=== PATIENT | male | born 2000 | race Caucasian/White ===

== ENCOUNTER 2025-01-13 17:53 | Emergency (ER) | payer OTHER, SELFPAY ==
[2025-01-13 18:02] VITALS: BP 151/93; BMI 28.9
[2025-01-13 18:06] LABS: Glucose - Point of Care 127 mg/dl (70-99)
--- NOTE | 2025-01-13 19:26 | ED.CVA ---
History of Present Illness
General
Chief Complaint: CVA/TIA Symptoms
Time Seen by Provider: 01/13/25 19:11
Onset of Stroke Symptoms
Onset of symptoms known: Yes
Date of onset of symptoms: 01/13/25
History of Present Illness
History of Present Illness:
See MDM
Past History
Past History
ED Past Medical History: Cancer, GERD, Seizures and Other (hyperpituitarism, methamonic acidemia)
ED Past Surgical History: Other (feeding tube, liver transplant 2013)
Social History
Tobacco: Non-smoker
Alcohol: None
Drug: None
Personal: Single
Living: with family
Employment: Other
Family History
Family History: Other (reviewed and noncontributory)
Phy Exam
Physical Exam
Physical Exam:
See MDM
Scores
NIH Stroke Score
Level of Consciousness: 0 - Alert
LOC Questions: 0-Answers both correctly
LOC Commands: 0-Performs both correctly
Best Horizontal Gaze: 0-Normal
Visual Beebe: 0=Normal, no visual loss
Facial Palsy: 0=Normal, symmetrical
Motor - Right Arm: 0=No drift 10 seconds
Motor - Left Arm: 0=No drift 10 seconds
Motor - Right Le-No drift 5 seconds
Motor - Left Le-No drift 5 seconds
Limb Ataxia: 0-Absent
Sensation: 0-Normal
Best Language: 0-No aphasia
Dysarthria: 0-Normal
Extinction and Inattention: 0-No abnormality
Total Score:: 0
Course
Orders/Labs/Results
Orders:
Orders
01/13/25 19:20
CMP [Comprehensive Metabolic Panel] Urgent
Complete Blood Count/With Diff Urgent
Urinalysis Reflex To Culture Urgent
Date Specimen was Collected: 01/13/25
Time Specimen was Collected: 19:19
Urine Microscopic Reflex Cult Urgent
Abnormal Lab Results
01/13/25 01/13/25
18:03 19:20
WBC 4.4 L 10^3/uL
(4.8-10.8)
RBC 4.58 L 10^6/uL
(4.70-6.10)
Hgb 12.9 L g/dL
(13.0-18.0)
Hct 36.4 L %
(39.0-52.0)
MCV 79.5 L fL
(80.0-94.0)
Neutrophils % 39.6 L %
(42.2-75.2)
Monocytes % 12.4 H %
(1.7-9.3)
Sodium 134 L mmol/L
(135-145)
Chloride 95 L mmol/L
(98-107)
BUN 33 H mg/dl
(9-20)
Creatinine 1.4 H mg/dL
(0.7-1.3)
Albumin 5.2 H g/dl
(3.5-5.0)
Ur Occult Blood Reflex 1+ A
(Negative)
Urine RBC 3-6 A /HPF
(0-2)
Urine Bacteria (Reflex) Few A
(Negative)
POC Glucose 127 H mg/dl
(70-99)
01/13/25 19:20
01/13/25 19:20
Vital Signs
Initial and Last Documented VS:
Initial Vital Signs
Temp Pulse Resp BP Pulse Ox
98.1 F 71 18 151/93 100
01/13/25 18:02 01/13/25 18:02 01/13/25 18:02 01/13/25 18:02 01/13/25 18:02
Last Documented Vital Signs
Temp Pulse Resp BP Pulse Ox
98.1 F 79 23 128/90 97
01/13/25 18:02 01/13/25 21:00 01/13/25 21:00 01/13/25 21:00 01/13/25 21:00
MDM/Problems Addressed
Differential Diagnosis Includes:
HPI and MDM Narrative:
24-year-old male presenting with his mother for evaluation of right arm weakness. Patient noted the symptoms around 4:10 PM today. This occurred while he was watching TV. Due to his significant past medical history they had a virtual visit with
their [facility] RN. Based on his symptoms, he was instructed to come to the emergency department.
Patient denies numbness or tingling. Mother is concerned whether this could be related to his prior issues, if this is an electrolyte abnormality or possibly nerve. He did go bowling yesterday and was using his right arm a lot. He then did heavy
lifting today but it is not sure whether or not he uses right arm his left arm. Regardless, mother thinks this could be an overuse issue. On my exam, patient does have proximal weakness to his right arm but the extremity is neurovascularly intact.
Patient can slowly raise his arm. Once he gets into position, there is no drift. Based on this, stroke alert was not called
Regardless, I did discuss with mother about obtaining CT head. She understands my concerns but declines CT head due to the radiation exposure. She understands the possible diagnoses that could be missed
Physical exam
General: Well appearing and non-toxic
HEENT: protecting airway
Neck: appears supple
CV: No evidence of cyanosis. Regular and rhythm
Resp: No accessory muscle use
Abd: Non-distended
Extremities: No deformities. Weakness noted to right shoulder but there is no drift.
Neuro: alert
Psych: Normal affect
Skin: Intact
Problems Addressed including Acute and Chronic Conditions affecting care:
1. Right arm weakness
Acuity: acute
Prognosis: stable
Details: Although the extremity is somewhat weak, there is no drift
Updates
Blood work without clinical significance. Mother now believes that this could be musculoskeletal related. He has been working with physical therapy recently and has been going to the gym doing arm and chest exercises. I did offer admission for
MRI to rule out stroke. However, they feel confident going home and will call the neurologist in the morning
Differential Diagnosis (but not limited to): Stroke, TIA, overuse, electrolyte abnormality
Testing considered: CT head
Drug therapy (if applicable): OTC meds, please see d/c instruction regarding Rx drugs
Amount and/or Complexity of Data Reviewed
Clinical info obtained from: Patient and mother
External data reviewed: N/A
Labs I independently reviewed (but not limited to): Mild hyponatremia. Hematuria but mother states this is chronic
Radiology: N/A
Pulse Ox: not hypoxic
EKG independently reviewed: N/A
Shipwright Helper: N/A
Critical Care: N/A
Risk of Complication:
Social Determinants of health: Good social support
Discussed with other providers: N/A
Escalation of Care includes Admit/Obs: After being observed in the Emergency Department, pt stable for discharge.
Occasional wrong word or 'sound a like' substitutions may have occurred due to the inherent limitations of voice recognition software. Read the chart carefully and recognize, using context, where substitutions have occurred.
*Critical Care Note
Total Time (30-74mins, 75-104mins- exclusive of procedures): Not Applicable
ED Attending Note
-
Portions of this chart may have been created with voice recognition software.� Occasional wrong word or��sound alike� substitutions may have occurred due to the inherent limitations of voice recognition software.
Discharge Plan
Departure
Patient Disposition: Home (Routine Discharge)
Date of Disposition: 01/13/25
Time of Disposition: 21:30
Patient with high blood pressure during this ER visit?: No
Discharge Problem:
Weakness of right arm
Prescriptions:
No Action
coenzyme Q10 [H2Q] 100 MG capsule
400 mg PO BID
levocarnitine (with sugar) [Carnitor] 100 MG/ML solution
3.4 ml feeding tube BID
Calcium Carbonate
1 tab PO TID PRN (Reason: stomach discomfort)
albuterol sulfate 1 PUFF HFA aerosol inhaler
1 puff inhalation PRN PRN (Reason: WHEEZE)
famotidine [Acid Controller] 20 MG tablet
20 mg PO BID
lorazepam 0.5 MG tablet
0.5 mg PO Q8HPRN PRN (Reason: anxiety)
diphenhydramine HCl [Banophen] 25 MG capsule
25 mg PO Q6HPRN PRN (Reason: nausea)
fluticasone propionate 1 SPRAY spray,suspension
1 spray intranasal DAILY PRN (Reason: allergies)
omega-3 acid ethyl esters [Lovaza] 1 GM capsule
2 gm PO BID
diclofenac sodium 100 GRAM/TUBE gel
2 g S QID PRN (Reason: skin)
loratadine 10 MG capsule
10 mg PO DAILY PRN (Reason: allergies)
losartan 50 MG tablet
50 mg PO BID
nystatin 5 ML suspension
1 dose PO PRN PRN (Reason: thrush)
tacrolimus 1 MG capsule
1 mg PO BID
escitalopram oxalate 5 MG tablet
5 mg PO DAILY
cholecalciferol (vitamin D3) 2,000 UNITS tablet
2,000 units PO DAILY
vitamin E (dl, acetate) 400 UNITS capsule
400 units PO DAILY
multivitamin with folic acid [Tab-A-David] 1 TABLET tablet
1 tab PO DAILY
magnesium oxide 400 MG tablet
400 mg PO DAILY
Clobazam
5 mg PO HS
Pedialyte Solution
1 l PO DAILY
albuterol sulfate [ProAir HFA] 90 mcg/actuation HFA aerosol inhaler
1 puff inhalation Q4HPRN PRN (Reason: shortness of breath) Qty: 6.7 0RF
Referrals:
Nabeel Raya MD [Primary Care Provider] -
Activity Restrictions/Additional Instructions:
Please return for any worsening symptoms.
You may return at any time if you have further concerns.
Please follow up with your doctor at the first available appointment, preferably this week.
Please call his neurology team tomorrow.
Thank you for choosing [facility].
Interventions
Interventions:
*Risk Screen - Suicide Last Done: 01/13/25 18:02
*General Assessment Last Done: 01/13/25 18:02
*Neglect/Abuse Screening Last Done: 01/13/25 18:02
ED- Fall Risk Assessment Last Done: 01/13/25 19:30
*ED COVID-19 Vaccine History Last Done: 01/13/25 18:02
ED- Pulmonary Assessment Last Done: 01/13/25 19:30
ED- Neurological Assessment Last Done: 01/13/25 19:30
ED- Cardiac Assessment Last Done: 01/13/25 19:30
Discharge Date and Time
Print Language: BRUNEIAN
[2025-01-13 19:27] LABS: Urine Albumin Negative (Neg - Trace); Urine Bilirubin Negative (Negative); Urine Character Clear (Clear); Urine Color Yellow; Urine Glucose Negative (Negative); Urine Ketone Negative (Negative); Urine Leukocyte Negative (Negative); Urine Nitrite Negative (Negative); Urine Occult Blood 1+ (Negative); Urine Specific Gravity 1.005 (<1.030); Urine Urobilinogen Negative (Neg - 1+)
[2025-01-13 19:28] LABS: % Basophils 0.9 % (0-2); % Eosinophils 3.8 % (0-6); % Lymphocytes 43.3 % (20.5-51.1); % Monocytes 12.4 % (1.7-9.3); % Neutrophils 39.6 % (42.2-75.2); Absolute Eosinophils 0.2 10^3/uL (0-0.7); Absolute Lymphocytes 1.9 10^3/uL (1.2-3.4); Absolute Monocytes 0.6 10^3/uL (0.1-0.6); Absolute Neutrophils 1.8 10^3/uL (1.4-6.5); Hematocrit 36.4 % (39.0-52.0); Hemoglobin 12.9 g/dL (13.0-18.0); Mean Corp Hgb Conc. 35.4 g/dL (33.0-37.0); Mean Corpuscular Hgb 28.2 pg (27.0-31.0); Mean Corpuscular Volume 79.5 fL (80.0-94.0); Mean Platelet Volume 9.1 fL (7.4-10.4); Nucleated Red Blood Cells % 0 % (-); Platelet Count 155 10^3/uL (130-400); Red Blood Cell Count 4.58 10^6/uL (4.70-6.10); Red Cell Dist. Width 13.4 % (11.5-14.5); White Blood Cell Count 4.4 10^3/uL (4.8-10.8)
[2025-01-13 19:32] LABS: Urine Squamous Cell 0-2 /LPF (Few)
[2025-01-13 19:33] LABS: Urine Bacteria Few (Negative); Urine White Cell 0-2 /HPF (0-5)
[2025-01-13 19:44] LABS: ALT (SGPT) 45 U/L (0-50); AST (SGOT) 47 U/L (17-59); Albumin 5.2 g/dl (3.5-5.0); Alkaline Phosphatase 97 U/L (38-126); Blood Urea Nitrogen 33 mg/dl (9-20); Calcium 9.5 mg/dl (8.4-10.2); Carbon Dioxide 27 mmol/L (22-30); Chloride 95 mmol/L (98-107); Estimated Creatinine Clearance 73 ml/min; Glucose 97 mg/dl (70-99); Potassium 4.8 mmol/L (3.5-5.1); Sodium 134 mmol/L (135-145); Total Protein 7.5 g/dl (6.3-8.2); eGFR > 60.00
[2025-01-13 20:49] VITALS: BP 144/86
[2025-01-13 21:00] VITALS: BP 128/90
--- NOTE | 2025-01-13 21:06 | EDRN ---
Patient ambulatory to the bathroom and back in bed, updated him and his mom on labs, Dr. Laboy to go back in and go over results with them.
== END 2025-01-13 22:15 | disposition home or self-care (01) ==
LOC: EMR 17:53
PROVIDERS: EMERGENCY PHYSICIAN Student in an Organized Health Care Education/Training Program; PRIMARYCARE PHYSICIAN Family Medicine
DX: R53.1 Weakness (principal); K21.9 Gastro-esophageal reflux disease without esophagitis; Z94.4 Liver transplant status; E22.9 Hyperfunction of pituitary gland, unspecified
CPT/HCPCS: 99282; 80053; 81003; 81015; 82962; 85025

== ENCOUNTER 2025-11-06 05:47 | Inpatient (IN) | payer OTHER, SELFPAY ==
[2025-11-06] VITALS (7 sets, daily range): BP systolic 109–146; BP diastolic 74–96; BMI 29.1; BMI 29.7
--- NOTE | 2025-11-06 01:01 | ED.GENMED ---
History of Present Illness
General
Chief Complaint: Gait Dysfunction
Source: patient and family (mom)
Time Seen by Provider: 11/06/25 00:43
History of Present Illness
History of Present Illness:
24-year-old male presents to the emergency room for evaluation due to difficulty walking. Patient states that he was at his physical therapy today and warmed up on the treadmill. After warming up on the treadmill he noticed that he was having
difficulty walking. He felt as if his legs were stiff and he was unable to bend at the knee. He was also unable to take normal steps send is walking with a very short gait. He has had episodes where he had some limb difficulty but typically this
improves with drinking fluids at rest. Tonight his symptoms have not improved. He is also never had both legs affected at the same time. Patient states he was seen here at [place] couple months ago when he had difficulty moving his right upper
extremity. No clear cause was found at that time but symptoms resolved. Patient has a history of methylmalonic acidemia. 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 Patient also had history of Burkitt's lymphoma for which she had chemotherapy. Mom
concerned that he may be having brain effects from his metabolic derangement.
Past History
Past History
ED Past Medical History: Cancer, GERD, Seizures and Other (hyperpituitarism, methamonic acidemia)
ED Past Surgical History: Other (feeding tube, liver transplant 2013)
Social History
Tobacco: Non-smoker
Alcohol: None
Drug: None
Personal: Single
Living: with family
Employment: Other
Family History
Family History: Other (reviewed and noncontributory)
Phy Exam
Physical Exam
Physical Exam:
General: Awake, Alert, Oriented X3. No acute distress.
Vitals: unremarkable
Head: Atraumatic
Eyes: Pupils equal, EOMI
Throat: Airway intact, no exudates
Neck: Trachea midline
Lungs: Clear and equal b/l
Heart: Regular rate, no murmurs
Abd: Soft, Nontender, No pulsatile mass
Neuro: Cranial nerves intact, muscle strength appears intact and that the patient has the ability to walk and weight-bear on his lower extremities. However when asked to flex at the hip he is unable to do so. Sensation is intact bilaterally.
Patient's gait observed. He is able to stand but his legs are stiff and he does not bend at the knee. When he walks forward he extends his leg a very short distance at the hip and slowly progresses forward with tiny steps.
Skin: Warm, dry, no rash
Extremities: pulses equal b/l, no edema
Course
Orders/Labs/Results
Orders:
Orders
11/06/25 01:00
0.9% Sodium Chloride 1000 ml [Nss] 1,000 ml IV BOLUS
11/06/25 01:31
Ammonia Urgent
CPK [Creatine Phosphokinase] Urgent
Complete Blood Count/With Diff Urgent
Comprehensive Metabolic Panel Urgent
Magnesium Urgent
Manual Differential Urgent
Phos [Phosphorus] Urgent
TSH Reflex To Free T4 Urgent
Abnormal Lab Results
11/06/25
01:31
RBC 4.25 L 10^6/uL
(4.70-6.10)
Hgb 11.8 L g/dL
(13.0-18.0)
Hct 33.5 L %
(39.0-52.0)
MCV 78.8 L fL
(80.0-94.0)
Segmented Neutrophils 35 L %
(42-75)
Lymphocytes (Manual) 55 H %
(20-51)
Sodium 132 L mmol/L
(135-145)
Chloride 97 L mmol/L
(98-107)
BUN 23 H mg/dl
(9-20)
11/06/25 01:31
11/06/25 01:31
Vital Signs
Initial and Last Documented VS:
Initial Vital Signs
Temp Pulse Resp BP Pulse Ox
98.7 F 78 22 146/90 100
11/06/25 00:00 11/06/25 00:00 11/06/25 00:00 11/06/25 00:00 11/06/25 00:00
Last Documented Vital Signs
Temp Pulse Resp BP Pulse Ox
97.7 F 77 16 128/74 99
11/06/25 02:37 11/06/25 02:37 11/06/25 02:37 11/06/25 02:37 11/06/25 02:37
MDM/Problems Addressed
Differential Diagnosis Includes:
Hyponatremia, hypokalemia, hypomanic, exacerbation of metabolic disease, CVA
MDM/Problems Addressed:
Patient presents due to difficulty walking. He has intact muscle strength but seems to have difficulty controlling movement of his legs. When he does stand he walks as if his legs are stiff and he cannot bend the knee. My initial pulse was obtain
a CT of the head to exclude space-occupying lesion or ischemic event. Patient and his mother have refused a CT because it uses ionizing radiation. He has been advised by his oncologist to avoid x-rays and CAT scans whenever possible. If he needs
imaging of the brain they desire an MRI only. My suspicion for an ischemic event is low however given the bilateral nature of his symptoms. His labs are all pretty unremarkable. Etiology of his gait dysfunction is not clear to me. Will
hospitalize the patient for further workup. I do not believe he is having an exacerbation of his metabolic syndrome as his ammonia level is normal. Also his mental status is normal.
*Pulse Oximetry
SaO2: 100
Oxygen Mode of Delivery: Room air
Patient hypoxic: no
*Critical Care Note
Total Time (30-74mins, 75-104mins- exclusive of procedures): Not Applicable
Patient Management
Social determinants of health affecting care: Strong social support
Discussion with other providers: Hospitalist
ED Attending Note
-
Portions of this chart may have been created with voice recognition software.� Occasional wrong word or��sound alike� substitutions may have occurred due to the inherent limitations of voice recognition software.
Discharge Plan
Departure
Patient Disposition: Admit
Date of Disposition: 11/06/25
Time of Disposition: 04:09
Admit to: Med/Surg
Presentation/result/management discussed w/ accepting MD/DO: Hospitalist
Condition: Fair
Discharge Problem:
Gait abnormality
Prescriptions:
No Action
coenzyme Q10 [H2Q] 100 MG capsule
400 mg PO BID
levocarnitine (with sugar) [Carnitor] 100 MG/ML solution
3.4 ml feeding tube BID
Calcium Carbonate
1 tab PO TID PRN (Reason: stomach discomfort)
albuterol sulfate 1 PUFF HFA aerosol inhaler
1 puff inhalation PRN PRN (Reason: WHEEZE)
famotidine [Acid Controller] 20 MG tablet
20 mg PO BID
lorazepam 0.5 MG tablet
0.5 mg PO Q8HPRN PRN (Reason: anxiety)
diphenhydramine HCl [Banophen] 25 MG capsule
25 mg PO Q6HPRN PRN (Reason: nausea)
fluticasone propionate 1 SPRAY spray,suspension
1 spray intranasal DAILY PRN (Reason: allergies)
omega-3 acid ethyl esters [Lovaza] 1 GM capsule
2 gm PO BID
diclofenac sodium 100 GRAM/TUBE gel
2 g S QID PRN (Reason: skin)
loratadine 10 MG capsule
10 mg PO DAILY PRN (Reason: allergies)
losartan 50 MG tablet
50 mg PO BID
nystatin 5 ML suspension
1 dose PO PRN PRN (Reason: thrush)
tacrolimus 1 MG capsule
1 mg PO BID
escitalopram oxalate 5 MG tablet
5 mg PO DAILY
cholecalciferol (vitamin D3) 2,000 UNITS tablet
2,000 units PO DAILY
vitamin E (dl, acetate) 400 UNITS capsule
400 units PO DAILY
multivitamin with folic acid [Tab-A-David] 1 TABLET tablet
1 tab PO DAILY
magnesium oxide 400 MG tablet
400 mg PO DAILY
Clobazam
5 mg PO HS
Pedialyte Solution
1 l PO DAILY
albuterol sulfate [ProAir HFA] 90 mcg/actuation HFA aerosol inhaler
1 puff inhalation Q4HPRN PRN (Reason: shortness of breath) Qty: 6.7 0RF
Referrals:
Abhijeet Corona MD [Family Provider, Family Practice]
Interventions
Interventions:
*General Assessment Last Done: 11/06/25 01:39
*Neglect/Abuse Screening Last Done: 11/06/25 00:00
*ED COVID-19 Vaccine History Last Done: 11/06/25 01:39
*ED Influenza Vaccine History Last Done: 11/06/25 01:39
[facility] Fall Risk Assessment Tool Last Done: 11/06/25 01:40
ED- Neurological Assessment Last Done: 11/06/25 01:37
ED-Musculoskeletal Assessment Last Done: 11/06/25 01:37
Discharge Date and Time
Print Language: THAI
[2025-11-06] MEDS: NSS 1000 IV (01:27)
[2025-11-06 02:01] LABS: ALT (SGPT) 49 U/L (0-50); AST (SGOT) 43 U/L (17-59); Albumin 4.5 g/dl (3.5-5.0); Alkaline Phosphatase 88 U/L (38-126); Blood Urea Nitrogen 23 mg/dl (9-20); Calcium 8.9 mg/dl (8.4-10.2); Carbon Dioxide 25 mmol/L (22-30); Chloride 97 mmol/L (98-107); Glucose 86 mg/dl (70-99); Magnesium 1.6 mg/dl (1.6-2.3); Potassium 4.1 mmol/L (3.5-5.1); Sodium 132 mmol/L (135-145); Total Protein 6.9 g/dl (6.3-8.2); eGFR > 60.00
[2025-11-06 02:04] LABS: Hematocrit 33.5 % (39.0-52.0); Hemoglobin 11.8 g/dL (13.0-18.0); Mean Corp Hgb Conc. 35.2 g/dL (33.0-37.0); Mean Corpuscular Volume 78.8 fL (80.0-94.0); Platelet Count 149 10^3/uL (130-400); Red Cell Dist. Width 13.8 % (11.5-14.5)
[2025-11-06 02:52] LABS: Ammonia 26 umol/L (9-30)
[2025-11-06 04:13] LABS: Absolute Neutrophils -Man Diff 1.9 10^3/uL (1.4-6.5); Normal RBC Morphology Yes; Platelets Checked Yes; Total Cells Counted 100
--- NOTE | 2025-11-06 05:19 | HPS.HSE ---
Family Physician
-
Family Physician: Abhijeet Corona MD
Chief Complaint
-
Bilateral lower extremity weakness
History of Present Illness
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
with bilateral lower extremity weakness today.
Patient reports that he has episodes of weakness associated with stress or heavy activity and sometimes this can be quite sporadic with weakness in his arms or inability to speak. Last episode alcohol several months ago and was seen in and out of
the ED with negative findings.
Patient reported that he was fine in usual health until after his morning PT. He walked vigorously on a treadmill. Thereafter patient report that he was unable to move his limbs. He maintains that he still has some strength in his legs and people
move his legs for him but the cannot move them himself. He is able to stand upright and move with a shuffling gait. However picking up his leg was impossible. He reports inability to bend his knees. Ankle pending on exam was detectable but
patient was able to walk despite inability to move his ankles. He denies any numbness or tingling. He denies having any back pain. He denies any recent interval infectious processes. Patient denies any rash. He denies any fevers or chills. He
denies any new medications. He spoke to his physician who recommended he go to the emergency department for evaluation.
Patient reported that in the past his symptoms usually resolve on their own after resting however he has been persistently weak for several hours.
In the emergency department he was afebrile, blood pressure of 12/04/2010 for reported of 70 oxygen saturation of 99%.
CBC was complete unremarkable stop electrolytes notable for a sodium of 132 but otherwise unremarkable. LFTs, ammonia level, TSH were all within the normal range.
Medical History
Past Medical History
Past Medical History: Reports Other
Additional Past Medical History:
Methylmalonic aciduria (MVT)
Status post liver transplantation on 07/2014
Post transplant lymphoproliferative disorder status post chemo
Hyperparathyroidism
Sleep apnea not currently requiring CPAP
Klipper feil syndrome
Past Surgical History: Reports Other
Additional Past Surgical History:
Liver transplantation
Social History
Tobacco: Non-smoker
Alcohol: None
Drug: None
Personal: Single
Living: With Family
Employment: Not Employed
Family History
Family History: Not pertinent
Allergies / Home Medications
Allergies reflects when Allergies were last updated in [email or web address].
Home Medications with original date entered in [email or web address]
Allergy/Medication List:
Allergies
Allergy/AdvReac Type Severity Reaction Status Date / Time
dexamethasone sod phosphate Allergy sensitivity Verified 11/06/25 00:04
(From Decadron) ?pancreatitis?
doxycycline Allergy Unknown Verified 11/06/25 00:05
gramicidin D (From Neosporin) Allergy Mom Uses Verified 11/06/25 00:04
it and he
does fine
ibuprofen Allergy Contraindicated Verified 11/06/25 00:04
with
metabolic
issues
levalbuterol (Levalbuterol) Allergy SEE BELOW Verified 11/06/25 00:04
metoclopramide (From Reglan) Allergy Contraindicated Verified 11/06/25 00:04
with
metobolic
disorder
naproxen (From Naprosyn) Allergy Contraindicated Verified 11/06/25 00:04
with
metabolic
issues
neomycin sulfate (From Allergy Mom States Verified 11/06/25 00:04
Neosporin) he can
tolerate
this
Polyethylene Glyc Allergy Pharmacy Verified 11/06/25 00:04
*RETIRED-01/19/12 to Review
(Polyethylene Glycol)
polymyxin B (From Neosporin) Allergy Mom Uses Verified 11/06/25 00:04
and child
tolerates
polymyxin B sulfate (From Allergy Mom Uses Verified 11/06/25 00:04
Neosporin) without
issues
prochlorperazine (From Allergy tremors Verified 11/06/25 00:04
Compazine)
red dye Allergy would like Verified 11/06/25 00:04
to
avoid-nothing
happens
Ringer's solution,lactated Allergy contraindicated Verified 11/06/25 00:04
with
metobolic
disorder
systemic corticosteroid Allergy contraindicated Uncoded 11/06/25 00:04
with
metobolic
disorder
Home Medications
Allopurinol 100 mg tablets, 100 mg p.o. daily
Losartan 100 mg tablets, 100 mg p.o. daily
Losartan 50 mg tablets, 50 mg p.o. every afternoon
omega-3 acid ethyl esters 1 gram capsule (Lovaza) 2 gm PO BID Supplement 07/08/20
escitalopram oxalate 5 mg tablet 5 mg PO DAILY 05/05/21
escitalopram oxalate 5 mg tablet 10 mg PO PM
tacrolimus 1 mg capsule, immediate-release 1 mg PO BID 05/05/21
vitamin E (dl, acetate) 180 mg (400 unit) capsule 400 units PO DAILY 05/05/21
albuterol sulfate 90 mcg/actuation aerosol inhaler (ProAir HFA) 1 puff inhalation Q4HPRN PRN shortness of breath #6.7 grams 10/12/23
Review of Systems
-
Constitutional: Reports No Symptoms
EENT: Reports No Symptoms
Respiratory: Reports No Symptoms
Cardiac: Reports No Symptoms
Abdomen/GI: Reports No Symptoms
: Reports No Symptoms
Musculoskeletal: Reports No Symptoms
Skin: Reports No Symptoms
Neurological: Reports Weakness
Endocrine: Reports No Symptoms
Hematologic/Lymphatic: Reports No Symptoms
Psych: Reports No Symptoms
Physical Exam
Vital Signs
Vital Signs
Temp Pulse Resp BP Pulse Ox
97.7 F 77 16 128/74 99
11/06/25 02:37 11/06/25 02:37 11/06/25 02:37 11/06/25 02:37 11/06/25 02:37
Physical Exam
General: Well Developed, Well Nourished and No Apparent Distress
HEENT: NormoCephalic, Moist mucous membranes and Atraumatic
Respiratory: Clear
Cardiac: S1/S2 and Regular Rhythm; No Murmur or Rub
GI: Soft, Non Tender, Non Distended and Normal Bowel Sounds; No Organomegaly
Rectal: Deferred by Provider
Musculoskeletal: No Clubbing, No Cyanosis and No Edema
Skin: No Rash
Neuro: AO x 3, Cranial Nerves Intact, No Sensory Deficits, DTR's Intact & Symmetrical and Other (strenght 5/5 bilaterally in upper ext, 1/5 at the hips bilaterally, 2/5 at the knees and 3/5 at the ankles. ); No Slurred Speech, Facial Droop or
Tremors
Psych: Calm
Laboratory Results
-
11/06/25 01:31
11/06/25 01:31
Laboratory Results
Total Bilirubin 0.5 mg/dl (0.2-1.3) 11/06/25 01:31
AST 43 U/L (17-59) 11/06/25 01:31
ALT 49 U/L (0-50) 11/06/25 01:31
Alkaline Phosphatase 88 U/L (38-126) 11/06/25 01:31
Data Reviewed
-
Lab Data: Labs Reviewed by me
Old Records: Reviewed
Impression/Plan
-
IMPRESSION:
24-year-old with history of methylmalonic acidemia, status post liver transplantation for this condition, history of PTLD status post chemo now in remission who presents to the emergency department with episode of bilateral lower extremity weakness.
No sensory losses. The event occurred acutely after an exercise. Patient typically has some weakness with ADLs with recent methylmalonic acidemia with vigorous exercise but usually returns to his normal baseline in the short period of time.
Patient continues to have weakness localized to just the proximal legs bilaterally. Sensation is intact. Reflexes are intact. There is no spasticity. There is no muscular fasciculations.
The differential includes methylmalonic acidemia, inflammatory demyelinating polyneuropathy, multiple sclerosis, myasthenia, syrinx/syringomyelia, possibly CVA though less likely.
PLAN:
Bilateral lower extremity weakness -presentation is very unlikely from his central processes. At this point differential includes something shagufta to AIDP although the presentation will be atypical, MS will also be atypical, with inflammatory
neurological processes such as myasthenia will also be a possibility but again will be atypical for onset in the proximal lower extremity.
� Will admit to MedSurg for now
� Obtain ESR, CRP, methylmalonic acid
� MRI with and without contrast of the brain
� Neurochecks every 6 hours
� And neurology consultation, patient may need lumbar puncture study MRI
� Would obtain a CT scan but family noted that they are physician recommended MRI instead of CT scan given his condition.
� Patient has been well-hydrated we will continue with dextrose containing fluids for now given his methylmalonic acidemia
� Will continue his usual medications including his losartan, Lexapro, allopurinol,
� Check tacrolimus level continue to hold 1 mg twice daily
� Continue home mitochondrial cocktail
� Continue his omega-3 fatty acids
DVT prophylaxis Lovenox subcu
CODE STATUS�full code
[2025-11-06 07:04] LABS: Nucleated Red Blood Cells % 0 % (-)
--- NOTE | 2025-11-06 09:55 | EDCM ---
Reviewed chart and met with pt and his mother bedside in ED. Lives with his parents in 2 story home, [address].
Independent in ADLs, personal care and ambulation at baseline. No assistive devices, only equipment is nebulizer.
PMH includes methylmalonic acidemia, liver transplant, Burkitts lymphoma, GERD, seizures.
Confirms prescription coverage.
No recent hx HH, no hx SNF
PCP: Abhijeet Corona
Pharmacy: [facility]
Anticipate discharge home, CM will continue to follow for all discharge planning needs.
--- NOTE | 2025-11-06 10:04 | CON.NEURO ---
Addendum entered and electronically signed by Mynor Shelley MD 11/06/25 20:59:
The patient was seen and examined today along with the nurse practitioner Deisy Weiss, and I agree with her assessment and management plan. Given below is my addendum.
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
lower extremity weakness since yesterday. The patient says that he has history of episodes of weakness associated with stress or excessive physical activity. Yesterday he walked vigorously on a treadmill and thereafter he was unable to move his
legs. Also reports that he can have these episodes with dehydration and electrolyte abnormalities and drank PediaSure yesterday. The patient's strength appears to have improved since he has been in the ED now he is able to stand up without any
support, however, he appears to be very cautious while walking probably because of mild weakness and the fear of falling.
On neurologic examination he is alert and oriented x 3, speech is clear, the strength in the upper extremities bilaterally is about 5/5 and the strength strength in lower extremities bilaterally is about 4/5. There is no limb ataxia seen.
The patient was discussed with Dr. Ke Stark. The patient's case was also discussed by the nurse practitioner Deisy Weiss with his oncologist Dr. Kim at [facility]. The plan is to get MRI of the brain along with the MRI of cervical, thoracic and
lumbar spine.
Will follow.
Original Note:
Neuro Assessment/Plan
Assessment
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
presents to [facility] on 11/06/2025 with bilateral lower extremity weakness since yesterday.
Brain MRI head w/ and w/o IV 05/06/2020:
1. No acute intracranial abnormality. No findings to suggest intracranial lymphoma involvement.
2. Diffusely decreased signal abnormality in the marrow of the cervical spine and skull base, which may reflect marrow response to anemia or marrow involvement with hematologic malignancy.
3. �Mild platybasia with somewhat retroflexed appearance of the dens and probable ligamentous hypertrophy dorsal to the dens, mildly flattening the junction of the medulla and cervical cord. Evaluation of the medulla and cord at this level is
degraded by motion and pulsation artifact. Probable incomplete segmentation of C2 and C3 and C5 and C6. CT would better assess developmental osseous anomalies at this cervical cranial junction and cervical spine. If the patient has symptoms
referrable to the cervicomedullary junction/upper cervical cord, MRI cervical spine may also be indicated.
Brain MRI without 07/08/2020 Punctate focus of increased diffusion-weighted signal and decreased ADC map signal in the central kala. This is surrounded by a larger region of decreased T1-weighted gradient echo and increased T2 and FLAIR signal.
Etiology for this finding is uncertain, with differential considerations discussed above. No significant mass effect and no midline shift. Normal MR appearance of the temporal lobes bilaterally. No evidence for temporal mesial sclerosis.
Dextroconvex scoliosis of the cervical spine. There appears to be at least partial fusion of the C2-3 disc space. Patient has a reported history of Klippel-Feil syndrome on provided history sheets.
Plan
Impression: abrupt onset of lower extremity weakness in an immunosuppressed patient with a large range of differentials including disc disease causing stenosis, myelopathy vs other structural pathology vs inflammatory demyelinating polyneuropathy vs
metabolic vs infection vs functional neurological disorder given history of anxiety
-obtain MRIs brain, cervical, thoracic and lumbar spine to look for structural abnormalities
-check LDH
-patient on tacrolimus and immunocompromised, check for infection
-pending results of imaging may consider LP
-pending results may need transfer to [facility]
All questions encouraged and answered, plan of care discussed with Dr. Shelley, hospitalist, Dr. Kim (his oncologist from [facility]), patient and mother
Consultation
Order
Date of Consultation: 11/06/25
Requesting Provider: hospitalist/ Dr. Ke Stark
Reason for Consult: b/l LE weakness
Subjective/Objective
Subjective Data
Date of Service: November 06, 2025
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
presents to [facility] on 11/06/2025 with bilateral lower extremity weakness since yesterday. Patient reports that he has episodes of weakness associated with stress or heavy activity and sometimes this can be quite sporadic with weakness in his arms or
inability to speak. Also reports can have these episodes with dehydration and electrolyte abnormalities and drank PediaSure all yesterday. Last episode occurred several months ago in January of this year with RUE weakness, was seen here in the ED
with negative findings. Patient reported that he was fine in usual health until yesterday after physical therapy as 4:30pm. He walked vigorously on a treadmill. Thereafter patient reports that he had lower extremity weakness, ambulating slowly and
inability to bend his knees. He denies any numbness or tingling. He denies having any neck/back pain. He denies any recent interval infectious processes although his father had COVID last month. Patient denies any rash. He denies any fevers or
chills. He denies any new medications. He spoke to his neurologist educational program director who recommended he go to the ED for evaluation.
Patient reported that in the past his symptoms usually resolve on their own after resting however he has been persistently weak for several hours. In ED he was afebrile, VSS. CBC was complete unremarkable, electrolytes notable for a sodium of 132
but otherwise unremarkable. LFTs, ammonia level, TSH were all within the normal range. MRI brain and cervical spine with and without have been ordered. I spoke with his oncologist Dr. Kim from [facility] who recommended also obtaining MRI thoracic and
lumbar spine with and without given his history. She also recommended obtaining LDH. On exam patient awake, alert and oriented. Notable weakness to lower extremities, which is not his baseline. Patient was able to ambulate and get himself in/out of
bed unassisted. Patient with +2 reflexes to patellar and ankle. Mother brought up the possibility of transfer. Will obtain imaging first, Dr. Kim agrees with plan of care. He follows with Dr. Ata Tamayo neurology at [facility].
Objective Data
Vital Signs
Temp Pulse Resp BP Pulse Ox
98.7 F 70 20 109/79 99
11/06/25 07:42 11/06/25 07:42 11/06/25 07:42 11/06/25 07:42 11/06/25 07:42
Lab Results
11/06/25 01:31
11/06/25 01:31
Sodium 132 mmol/L (135-145) L 11/06/25 01:31
Potassium 4.1 mmol/L (3.5-5.1) 11/06/25 01:31
BUN 23 mg/dl (9-20) H 11/06/25 01:31
Glucose 86 mg/dl (70-99) 11/06/25 01:31
Calcium 8.9 mg/dl (8.4-10.2) 11/06/25 01:31
Phosphorus 3.3 mg/dl (2.5-4.5) 11/06/25 01:31
Patient Allergies
dexamethasone sod phosphate (From Decadron) Allergy (Verified 11/06/25 00:04)
sensitivity ?pancreatitis?
doxycycline Allergy (Verified 11/06/25 00:05)
Unknown
gramicidin D (From Neosporin) Allergy (Verified 11/06/25 00:04)
Mom Uses it and he does fine
ibuprofen Allergy (Verified 11/06/25 00:04)
Contraindicated with metabolic issues
levalbuterol (Levalbuterol) Allergy (Verified 11/06/25 00:04)
SEE BELOW
metoclopramide (From Reglan) Allergy (Verified 11/06/25 00:04)
Contraindicated with metobolic disorder
naproxen (From Naprosyn) Allergy (Verified 11/06/25 00:04)
Contraindicated with metabolic issues
neomycin sulfate (From Neosporin) Allergy (Verified 11/06/25 00:04)
Mom States he can tolerate this
Polyethylene Glyc *RETIRED-01/19/12 (Polyethylene Glycol) Allergy (Verified 11/06/25 00:04)
Pharmacy to Review
polymyxin B (From Neosporin) Allergy (Verified 11/06/25 00:04)
Mom Uses and child tolerates
polymyxin B sulfate (From Neosporin) Allergy (Verified 11/06/25 00:04)
Mom Uses without issues
prochlorperazine (From Compazine) Allergy (Verified 11/06/25 00:04)
tremors
red dye Allergy (Verified 11/06/25 00:04)
would like to avoid-nothing happens
Ringer's solution,lactated Allergy (Verified 11/06/25 00:04)
contraindicated with metobolic disorder
systemic corticosteroid Allergy (Uncoded 11/06/25 00:04)
contraindicated with metobolic disorder
Physical Exam
-
General: Appears Stated Age
HEENT: Normocephalic and Atraumatic
Neck: Full Range of Motion
Respiratory: No Dyspnea
Cardiac: No JVD
GI: Non-distended
Skin: Unremarkable
Extremities: No Clubbing, No Cyanosis and No Edema
Psych: Unremarkable
Extended Neurological Exam
Mood & Affect: Mood Unremarkable
Attention Span & Concentration: Awake, Alert, Interactive and No Difficulty with 2 Step Request
Memory: Unremarkable
Speech: Quality Unremarkable, Quantity Unremarkable and Rate of Production Unremarkable
Cranial Nerve VII: Facial Symmetry: Normal Facial Symmetry
Cranial Nerve VIII: Hearing: Unremarkable Hearing to Normal Conversational Volume
Muscle Strength, Overall: Reduced Bilaterally (b/l hip flexors 4/5, able to get in/out of bed, able to ambulate slowly )
Pronator Drift: No Drift in Upper Extremities, Drift in Left Lower Extremity and Drift in Right Lower Extremity
Deep Tendon Reflexes: Other (2+ to b/l patellar and ankle)
Data Reviewed
-
Medical Test Reports: Report Reviewed
Labs: Report Reviewed
Reviewed with: Physician, Patient and Family
Old Records: Summarized
Medications
-
Active Medications
Generic Name Dose Route Start Last Admin
Trade Name Freq PRN Reason Stop Dose Admin
Acetaminophen 650 mg 11/06/25 09:40
Acetaminophen 325 Mg Tablet PO 12/04/25 09:39
Q4HPRN PRN
mild pain/GIORDANO/temp> 100.4F
Allopurinol 100 mg 11/06/25 09:40
Allopurinol 100 Mg Tablet PO 12/04/25 09:39
DAILY DEANGELO
Bisacodyl 10 mg 11/06/25 09:40
Bisacodyl 10 Mg Rectal Suppository RECTAL 12/04/25 09:39
[id number] PRN
constipation
Enoxaparin Sodium 40 mg 11/06/25 18:00
Enoxaparin Sodium 40 Mg/0.4 Ml Syringe SC 12/04/25 17:59
QPM DEANGELO
Escitalopram Oxalate 5 mg 11/06/25 09:40
Escitalopram 5 Mg Tablet PO 12/04/25 09:39
DAILY DEANGELO
Escitalopram Oxalate 10 mg 11/06/25 22:00
Escitalopram 10 Mg Tablet PO 12/04/25 21:59
HS DEANGELO
Dextrose/Sodium Chloride 1,000 mls @ 100 mls/hr 11/06/25 09:40
D5/0.9% Sodium Chloride IV 11/06/25 19:39
.Q10H DEANGELO
Losartan Potassium 50 mg 11/06/25 09:40
Losartan 50 Mg Tablet PO 12/04/25 09:39
BID DEANGELO
Losartan Potassium 50 mg 11/06/25 09:40
Losartan 50 Mg Tablet PO 12/04/25 09:39
DAILY DEANGELO
Non-Formulary Medication 2 gm 11/06/25 09:40
[place]-3 Acid Ethyl Esters [Lovaza] PO 12/04/25 09:39
BID DEANGELO
Non-Formulary Medication 1 tablet 11/06/25 09:40
Mitochondrial Cocktail PO 12/04/25 09:39
DAILY DEANGELO
Ondansetron HCl 4 mg 11/06/25 09:40
Ondansetron 4 Mg/2 Ml Vial IV 12/04/25 09:39
Q6HPRN PRN
nausea and vomiting
Polyethylene Glycol 17 grams 11/06/25 09:40
Polyethylene Glycol Powder 17 Grams Packet PO 12/04/25 09:39
DAILYPRN PRN
constipation
Senna/Docusate Sodium 1 tablet 11/06/25 09:40
Docusate W/Senna (Shaye-Colace) Tablet PO 12/04/25 09:39
BIDPRN PRN
constipation
Tacrolimus 1 mg 11/06/25 09:40
Tacrolimus 1 Mg Capsule PO 12/04/25 09:39
BID DEANGELO
Vitamin E 400 units 11/06/25 09:40
Vitamin E 400 International Units Capsule (180 Mg) PO 12/04/25 09:39
DAILY DEANGELO
Home Medications
�Medication �Instructions �Recorded
omega-3 acid ethyl esters 1 gram 2 gm PO BID Supplement 07/08/20
capsule (Lovaza)
escitalopram oxalate 5 mg tablet 5 mg PO DAILY Mental Health/Anxiety 05/05/21
losartan 50 mg tablet 50 mg PO HS Blood Pressure 05/05/21
tacrolimus 1 mg capsule, 1 mg PO BID Transplant 05/05/21
immediate-release
Magnesium,Zinc,Vitamin D3, Calcium 1 tab PO DAILY Supplement 11/06/25
Ubiquinol-Aplha Lipoic 1 dose PO BID 11/06/25
Acid-Vitamin E-Leucovorin
allopurinol 100 mg tablet 100 mg PO DAILY 11/06/25
cholecalciferol (vit D3) 137.5 mcg 1 tab PO DAILY Supplement 11/06/25
(5,500 unit)-vit K2 200 mcg tablet
clindamycin 1 %-benzoyl peroxide 5 1 applic topical DAILYPRN PRN ACNE 11/06/25
% topical gel
clobetasol 0.05 % topical cream 1 applic topical DAILYPRN PRN 11/06/25
ECZEMA ON HANDS & FACE
escitalopram oxalate 10 mg tablet 10 mg PO HS Mental Health/Anxiety 11/06/25
(Lexapro)
ketoconazole 1 % shampoo 1 applic topical DAILYPRN PRN 11/06/25
ECZEMA
losartan 100 mg tablet 100 mg PO DAILY Blood Pressure 11/06/25
magnesium glycinate 100 mg (as 100 mg PO HS Supplement 11/06/25
glycinate) tablet
therapeutic multivitamin 1 tab PO DAILY Supplement 11/06/25
Past History
Past History
ED Past Medical History: Cancer, GERD, Seizures and Other (hyperpituitarism, methamonic acidemia)
ED Past Surgical History: Other (feeding tube, liver transplant 2013)
Family/Social History
Tobacco: Non-smoker
Alcohol: None
Drug: None
Personal: Single
Living: with family
Employment: Other
Family History: Other (reviewed and noncontributory)
--- NOTE | 2025-11-06 10:31 | EDRN ---
neurology currently at the pts bedside
[2025-11-06] MEDS: D5/0.9% SODIUM CHLORIDE 1000 IV (11:35)
--- NOTE | 2025-11-06 12:41 | W.PN.UPDATE ---
Update Note
Progress Note Update
Patient seen and examined after postmidnight admission. No new complaints. VSS, afebrile. NAD, awake and alert. RRR, normal S1/S2, CTAB. CN2-12 intact. RLE/LLE 3/5 strength. Continue plan as outlined in the H&P done on today's date. MRIs of the
brain and entire spine have been ordered. I have discussed the case with neurology. The patient's mother has been updated at bedside extensively.
[2025-11-06 13:15] LABS: COVID-19 Antigen Negative (Negative)
[2025-11-06 13:55] LABS: LDH 228 U/L (120-246)
--- NOTE | 2025-11-06 14:00 | EDRN ---
this RN called the receiving unit and notified them that paper report was going to be tubed up
[2025-11-06 15:17] LABS: Iron 61 ug/dl (49-181)
[2025-11-06 15:54] LABS: Ferritin 63.9 ng/ml (17.9-464.0)
[2025-11-06 16:26] LABS: Folate > 20.0 ng/ml (2.76-20); Vitamin B12 993 pg/ml (239-931)
--- NOTE | 2025-11-06 18:16 | PTCARENOTE ---
Pt. came from ED on stretcher around 1600. MRI then called for patient to go down. Pt. came back up to the floor around 1800. Explained discharge process to pt. and mom, family not too happy with spending the night. Explained the process and their
options that if they want to leave tonight it would have to be against medical advice. Pt. and mom expressed understanding. Nursing assessment complete. Pt. reports improvement with B/L LE strength, able to walk unassisted. Will continue with
current plan of care.
--- NOTE | 2025-11-06 21:04 | PTCARENOTE ---
Patient's family requesting to leave hospital. Patient's mother stated 'he doesn't need nursing care'. BREAK OUT WORKER made aware of patient's request. BREAK OUT WORKER in to see patient. Patient's home medications given and IV removed. Patient's mother requested wheelchair
assistance. Staff transported patient via wheelchair off unit @[id number].
--- NOTE | 2025-11-06 21:10 | W.PN.UPDATE ---
Update Note
Progress Note Update
2039 RN reports pt and family wish to go home
At bedside pt states his sister is coming to town for holidays and he is feeling back to normal after a nap and he would like to go home. Mom and dad at bedside agree. They states he does not have any medical needs at this time. They did want to
know if neurology or attending would call them tomorrow to discuss MRI results. They did see them on pt portal. They did have a question regarding a finding on brain mri but this provider could not explain findings. They do have neuologist at [facility].
Will pass on to attending. AMA paperwork signed by pt.
--- NOTE | 2025-11-07 15:20 | W.PN.UPDATE ---
Update Note
Progress Note Update
I talked to the patient's mother regarding MRI reports, gave answers to her questions and she verbalized understanding of our discussion.
The plan is to follow-up with neurology.
== END 2025-11-06 21:41 | disposition left against medical advice (07) | DRG 556 ==
LOC: 3 WEST ACU 05:47
PROVIDERS: Nurse Practitioner; ADMITTING PHYSICIAN Internal Medicine; ATTENDING PHYSICIAN Internal Medicine; CONSULT PHYSICIAN Psychiatry & Neurology Neurology; EMERGENCY PHYSICIAN Emergency Medicine; FAMILY PHYSICIAN Family Medicine
DX: R26.2 Difficulty in walking, not elsewhere classified (principal); Z53.29 Procedure and treatment not carried out because of patient's decision for other reasons; E71.120 Methylmalonic acidemia; D47.Z1 Post-transplant lymphoproliferative disorder (PTLD); D84.821 Immunodeficiency due to drugs; T86.49 Other complications of liver transplant; T45.1X5A Adverse effect of antineoplastic and immunosuppressive drugs, initial encounter; M41.9 Scoliosis, unspecified; G47.30 Sleep apnea, unspecified; Z85.72 Personal history of non-Hodgkin lymphomas; Z92.21 Personal history of antineoplastic chemotherapy; Y83.0 Surgical operation with transplant of whole organ as the cause of abnormal reaction of the patient, or of later complication, without mention of misadventure at the time of the procedure
CPT/HCPCS: 70553; 72156; 72157; 80053; 82140; 82550; 82607; 82728; 82746; 83540; 83615; 83735; 84100; 84443; 85025; 87502; 87811; A9575